=== PATIENT | female | born 1980 | race Caucasian/White ===

== ENCOUNTER 2017-08-02 11:33 | Emergency (ER) | payer OTHER ==
[2017-08-02 12:33] LABS: Absolute Lymphocytes (CBC) 1.4 K/uL (0.7-4.9); Absolute Monocytes 0.8 K/uL (0.1-1.3); Absolute Neutrophil 4.1 K/uL (1.8-8.0); Eosinophils % 3.5 % (0-4.4); Hematocrit 41.9 % (36.0-45.0); Lymphocytes % 20.9 % (15.3-44.8); MCH 28.9 pg (27.0-35.0); MCV 88.7 fL (80-100); MPV 8.9 fL (7.6-11.3); Monocytes % 12.6 % (3.3-12.3); RBC Red Blood Cell Count 4.73 M/uL (3.86-4.86)
[2017-08-02 12:37] LABS: Protime INR 1.02
[2017-08-02 12:46] LABS: Bicarbonate 24 mEq/L (21-31); Glucose Level 97 mg/dL (65-120); Potassium 3.8 mEq/L (3.6-5.0); Sodium Level 139 mEq/L (135-145)
[2017-08-02 12:51] LABS: ALT/SGPT 17 IU/L (10-60); AST/SGOT 19 IU/L (10-42); Albumin 4.2 g/dL (3.2-5.5); Alkaline Phosphatase 63 IU/L (42-121); BUN Blood Urea Nitrogen 14 mg/dL (6-20); Bilirubin Direct 0.1 mg/dL (0-0.2); Protein, Total 7.2 g/dL (6.0-8.3)
[2017-08-02 12:55] LABS: Alcohol Serum/Plasma < 10 mg/dl; Salicylates Level < 4.0 mg/dl (<30)
[2017-08-02 13:03] LABS: Urine Blood NEGATIVE (NEG); Urine Glucose NEGATIVE (NEG); Urine Protein 1+ (NEG); Urine Specific Gravity >1.030 (1.005-1.030); Urine pH 6.5 (5.0-7.0)
[2017-08-02 13:06] LABS: Barbiturates NEGATIVE; Benzodiazepines POSITIVE; Cocaine NEGATIVE; Opiates NEGATIVE; Phencyclidine NEGATIVE; THC Cannibis NEGATIVE
[2017-08-02 13:10] LABS: METHAMPHETAM POSITIVE
--- NOTE | 2017-08-02 13:36 | EKG ---
Test Date: 2017-08-02 Test Time: 12:07:04 Tube Machine Operator: HEAVEN MEASUREMENT RESULTS: Intervals: Rate: 77 WI: 122 QRSD: 84 QT: 396 QTc: 448 [place]: P: 49 WI: 122 QRS: 71 T: 49 INTERPRETIVE STATEMENTS: Normal sinus rhythm Normal ECG No previous ECG available for comparison Electronically Signed On 08-02-17 13:36:25 CDT by Barry Blackburn
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
== END 2017-08-02 17:45 | disposition home or self-care (01) ==
LOC: ER 11:33
DX: F43.21 Adjustment disorder with depressed mood (principal); E03.9 Hypothyroidism, unspecified; F20.9 Schizophrenia, unspecified; F31.9 Bipolar disorder, unspecified
CPT/HCPCS: 36415; 80048; 80076; 80307; 80320; 80329; 81003; 81025; 85025; 85610; 85730; 93005; 99285

== ENCOUNTER 2017-08-11 14:33 | Emergency (ER) | payer OTHER ==
--- NOTE | 2017-08-11 15:42 | RAD REPORT ---
EXAM DESCRIPTION: RAD - Wrist Right 3 View - 08/11/2017 3:37 pm CLINICAL HISTORY: Pain and swelling. COMPARISON: None. FINDINGS: No fracture or dislocation seen. No foreign body seen. Mild soft tissue swelling is seen along the dorsum of the wrist and forearm.
--- NOTE | 2017-08-11 15:42 | RAD REPORT ---
EXAM DESCRIPTION: RAD - Wrist Left 3 View - 08/11/2017 3:36 pm CLINICAL HISTORY: Pain and swelling. COMPARISON: None. FINDINGS: No fracture or dislocation seen. No foreign body or other soft tissue abnormality. IMPRESSION: Negative examination.
--- NOTE | 2017-08-11 16:05 | RAD REPORT ---
EXAM DESCRIPTION: CT - Head Brain Wo Cont - 08/11/2017 3:56 pm CLINICAL HISTORY: Headache COMPARISON: None. TECHNIQUE: Computed axial tomography of the head was obtained. IV contrast was not requested. All CT scans are performed using dose optimization technique as appropriate and may include automated exposure control or mA/KV adjustment according to patient size. FINDINGS: An intracranial bleed is not seen . The ventricles are normal in caliber. No extra-axial fluid collection is noted. Fluid within the sinuses/ mastoids is not seen. IMPRESSION: No acute intracranial abnormality is seen. If patient's symptoms persist MRI of the bra in would be recommended.
[2017-08-11 16:20] LABS: Bicarbonate 22 mEq/L (21-31); Glucose Level 90 mg/dL (65-120); Potassium 3.5 mEq/L (3.6-5.0); Sodium Level 137 mEq/L (135-145)
[2017-08-11 16:25] LABS: Absolute Lymphocytes (CBC) 1.6 K/uL (0.7-4.9); Absolute Monocytes 1.2 K/uL (0.1-1.3); Absolute Neutrophil 6.3 K/uL (1.8-8.0); Basophils % 0.9 % (0-1.3); Eosinophils % 0.9 % (0-4.4); Hematocrit 39.6 % (36.0-45.0); Lymphocytes % 17.6 % (15.3-44.8); MCH 29.2 pg (27.0-35.0); MCV 88.3 fL (80-100); MPV 8.9 fL (7.6-11.3); Monocytes % 12.8 % (3.3-12.3); RBC Red Blood Cell Count 4.48 M/uL (3.86-4.86)
[2017-08-11 16:26] LABS: ALT/SGPT 24 IU/L (10-60); AST/SGOT 24 IU/L (10-42); Albumin 4.1 g/dL (3.2-5.5); Alkaline Phosphatase 61 IU/L (42-121); BUN Blood Urea Nitrogen 14 mg/dL (6-20); Bilirubin Direct 0.1 mg/dL (0-0.2); Protime INR 0.97
[2017-08-11 16:28] LABS: Alcohol Serum/Plasma < 10 mg/dl; Salicylates Level < 4.0 mg/dl (<30)
[2017-08-11] MEDS ORDERED: ACETAMINOPHEN 500 MG TAB ONE (16:56)
[2017-08-11] MEDS ORDERED: NA CHLORIDE 0.9% 1,000 ML ONE (16:56)
--- NOTE | 2017-08-11 17:41 | EKG ---
Test Date: 2017-08-11 Test Time: 15:40:16 Mass Spectrometry Specialist: HEAVEN MEASUREMENT RESULTS: Intervals: Rate: 99 IN: 118 QRSD: 80 QT: 364 QTc: 467 [place]: P: 71 IN: 118 QRS: 83 T: 72 INTERPRETIVE STATEMENTS: Normal sinus rhythm Normal ECG Compared to ECG 08/02/2017 12:07:04 No significant changes Electronically Signed On 08-11-17 17:40:07 CDT by Barry Blackburn
--- NOTE | 2017-08-11 21:29 | ER ---
Nurse's Notes [facility] Name: Riddhi Kaiser Age: 37 yrs Sex: Female : 1980 Arrival Date: 08/11/2017 Time: 14:39 Bed 4 Private MD: Diagnosis: Delirium due to known physiological condition;Drug abuse counseling and surveillance of drug abuser;Contusion of left hand;Contusion of right hand Presentation: 08/11 14:30 Presenting complaint: EMS states: Pt found outside in our parking lot. Pt was spitting, sv flailing about and yelling. Pt has injuries to bilateral wrists, bilateral hand swelling. Pt has a splint to the right wrist. Friends that were with her stated she took a hit of Bala. 20G R FA. Ativan 2mg IM in right shoulder. Ketamine 140 mg IV given. BS -122 Temp 98.2. Pt reports smoking a hit of Bala and methamphetamine's last night. Transition of care: patient was not received from another setting of care. Onset of symptoms was August 11, 2017. Care prior to arrival: IV initiated. 20 GA, in the left forearm, Glucose check: 122. 14:30 Method Of Arrival: EMS: [facility] sv 14:30 Acuity: JOB 2 sv 14:31 Initial Sepsis Screen: Does the patient meet any 2 criteria? No. Patient's initial sv sepsis screen is negative. Does the patient have a suspected source of infection? No. Patient's initial sepsis screen is negative. Triage Assessment: 14:35 General: Appears uncomfortable, unkempt, Behavior is cooperative, agitated. Pain: sv Complains of pain in right hand and left hand Unable to use pain scale. FLACC scale score is 3 out of 10. EENT: No signs and/or symptoms were reported regarding the EENT system. Neuro: Level of Consciousness is obeys commands, confused, lethargic, Oriented to person, situation. Cardiovascular: Capillary refill < 3 seconds is brisk in bilateral fingers Patient's skin is warm and dry. Pulses are 3+ in right radial artery and left radial artery. Respiratory: Respiratory effort is even, unlabored, Respiratory pattern is regular, symmetrical. Derm: Skin is normal, Bruising that is on right hand and left hand dark red. Musculoskeletal: Range of motion: intact in all extremities, Swelling present in right hand and left hand. 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 - Social history:: Smoking status: unknown Patient uses street drugs, Methamphetamine (Meth) Bala. Screenin:54 Abuse screen: Denies threats or abuse. Denies injuries from another. Nutritional sv screening: No deficits noted. Tuberculosis screening: No symptoms or risk factors identified. Fall Risk No fall in past 12 months (0 pts). Secondary diagnosis (15 points) impaired mobility, IV access (20 points). Ambulatory Aid- None/Bed Rest/Nurse Assist (0 pts). Gait- Impaired (20 pts.). Mental Status- Overestimates/Forgets Limitations (15 pts.). Total Ly Fall Scale indicates High Risk Score (45 or more points). Fall prevention measures have been instituted. Side Rails Up X 2 Frequent Obs/Assessments Occuring As available patient and family educated on Fall Prevention Program and Strategies. Assessment: 15:00 Reassessment: No changes from previously documented assessment. Patient and/or family sv updated on plan of care and expected duration. Pain level reassessed. Pt stated "I'm going into another dimension. I'm going into multiple dimensions.". 15:25 Reassessment: Xray at bedside. sv 15:38 Reassessment: No changes from previously documented assessment. Patient and/or family sv updated on plan of care and expected duration. Pain level reassessed. 16:34 Reassessment: Patient appears in no apparent distress at this time. Pt appears to be sv resting with eyes closed at this time. Respirations even and unlabored with no difficulty noted. 18:30 Reassessment: Patient appears in no apparent distress at this time. No changes from sv previously documented assessment. Patient and/or family updated on plan of care and expected duration. Pain level reassessed. Patient is alert, oriented x 3, equal unlabored respirations, skin warm/dry/pink. 18:39 Reassessment: Called 3 numbers given by Riddhi for her boyfriend Donato to give her a sv ride home. Numbers are [phone], , . Left voicemail on 2 numbers. 19:21 Reassessment: No changes from previously documented assessment. Patient and/or family tl1 updated on plan of care and expected duration. Pain level reassessed. 20:30 Reassessment: Patient appears in no apparent distress at this time. Patient and/or ao family updated on plan of care and expected duration. Pain level reassessed. Patient continues to sleep with no SS of distress. 21:30 Reassessment: Patient appears in no apparent distress at this time. Patient and/or ao family updated on plan of care and expected duration. Pain level reassessed. Patient woke up and started to scream demanding food. 22:16 Reassessment: Pt was discharged alert, oriented and ambulatory with no disturbance in tl1 gait Patient states symptoms have improved. Vital Signs: 14:42 BP 135 / 102; Pulse 109; Resp 18; Temp 97.8; Pulse Ox 100% ; sv 15:26 BP 133 / 98; Pulse 96; Resp 20; Pulse Ox 100% ; sv 16:33 BP 118 / 89; Pulse 82; Resp 16; Pulse Ox 100% on R/A; sv 18:07 BP 132 / 89; Pulse 63; Resp 17; Pulse Ox 99% on R/A; jb1 19:21 BP 118 / 84; Pulse 81; Resp 18; Pulse Ox 100% on R/A; Pain 0/10; tl1 20:29 BP 120 / 85; Pulse 84; Resp 17; Pulse Ox 100% ; Pain 0/10; tl1 21:30 BP 141 / 92; Pulse 90; Resp 16; Pulse Ox 100% on R/A; Pain 0/10; ao ED Course: 14:30 Maintain EMS IV. Dressing intact. Good blood return noted. Site clean \\T\\ dry. Gauge \\T\\ sv site: 20G L AC. 14:39 Patient arrived in ED. iw 14:39 Denita Braun, RN is Primary Nurse. sv 14:42 Triage completed. sv 14:45 Patient has correct armband on for positive identification. Placed in gown. Bed in low sv position. Side rails up X2. ice guard inspector on. Pulse ox on. NIBP on. Door closed. Head of bed elevated. 14:53 Arm band placed on left ankle. sv 15:01 Awaiting ED provider evaluation. sv 15:32 Ruthie Andersen FNP-C is [facility]. snw 15:32 Spencer Gomez MD is Attending Physician. snw 15:36 Wrist Left (3 View) XRAY In Process Unspecified. EDMS 15:36 Wrist Right 3 View XRAY In Process Unspecified. EDMS 15:45 EKG done, by technical analyst. reviewed by Ruthie PATEL. at1 15:[address] via stretcher. sv 15:56 Patient moved back from CT. sv 15:56 CT Head Brain wo Cont In Process Unspecified. EDMS 16:34 Awaiting re-evaluation by ER provider. sv 19:08 Report given to Christian CARRINGTON. sv 19:22 Resting quietly. Appears to be sleeping. tl1 22:17 No provider procedures requiring assistance completed. IV discontinued, intact, tl1 bleeding controlled, No redness/swelling at site. Administered Medications: 17:00 Drug: NS 0.9% 1000 ml Route: IV; Rate: 1 bolus; Site: left forearm; sv 22:18 Follow up: IV Status: Completed infusion tl1 17:00 Drug: Tylenol 1000 mg Route: PO; sv 18:18 Follow up: Response: No adverse reaction sv Intake: 17:01 PO: 300ml (Water); Total: 300ml. sv Outcome: 21:29 Discharge ordered by . snw 22:16 Discharged to home ambulatory. tl1 22:16 Condition: stable 22:16 Instructed on discharge instructions, follow up and referral plans. 22:18 Patient left the ED. tl1 Signatures: Dispatcher [employer] EDMS Julián Grover Stephanie, RN RN sv Ruthie Andersen FNP-C [employer]-Cs[employer] Mery Burgess RN RN Airam abdullahi, jack frame tender EKG Tat1 Riana Prince RN RN tl1 Christian Benitez RN RN ao Corrections: (The following items were deleted from the chart) 14:53 14:42 Pulse 109bpm; Resp 18bpm; Pulse Ox 100%; Temp 97.8F; sv sv 14:59 14:30 Presenting complaint: EMS states: Pt found outside in our parking lot. Pt was sv spitting, flailing about and yelling. Pt has injuries to bilateral wrists, bilateral hand swelling. Pt has a splint to the right wrist. Friends that were with her stated she took a hit of Bala. 20G R FA. Ativan 2mg IM in right shoulder. Ketamine 140 mg IV given. BS -122 Temp 98.2. sv
--- NOTE | 2017-08-11 21:29 | EDPHYS ---
Physician Documentation [facility] Name: Riddhi Kaiser Age: 37 yrs Sex: Female : 1980 Arrival Date: 08/11/2017 Time: 14:39 Bed 4 Private MD: ED Physician Spencer Gomez HPI: 08/11 15:34 This 37 yrs old Female presents to ER via EMS with complaints of Wrist snw Injury, Psych Problem. 15:34 The patient or guardian reports decreased range of motion, pain, swelling. The snw complaints affect the left wrist diffusely, right wrist diffusely. Context: The problem was sustained outdoors, on a street or driveway. Onset: The symptoms/episode began/occurred acutely, last night, and became persistent. Associated signs and symptoms: Pertinent positives: numbness distally, tingling distally. Compartment Syndrome negative for. It is unknown whether or not the patient has had similar symptoms in the past. It is unknown whether or not the patient has recently seen a physician. 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 - Social history:: Smoking status: unknown Patient uses street drugs, Methamphetamine (Meth) Bala. ROS: 15:42 Constitutional: Negative for fever, chills, and weight loss, Eyes: Negative for injury, snw pain, redness, and discharge, ENT: Negative for injury, pain, and discharge, Neck: Negative for injury, pain, and swelling, Cardiovascular: Negative for chest pain, palpitations, and edema, Respiratory: Negative for shortness of breath, cough, wheezing, and pleuritic chest pain, Abdomen/GI: Negative for abdominal pain, nausea, vomiting, diarrhea, and constipation, Back: Negative for injury and pain, Skin: Negative for injury, rash, and discoloration. 15:42 MS/extremity: Positive for injury or acute deformity, decreased range of motion, ecchymosis, swelling, of the bilateral hands/wrist. Exam: 15:43 Constitutional: This is a well developed, well nourished patient who is talking about snw demons invading her person post smoking Bala. States the demons attacked her Head/Face: Normocephalic, atraumatic. Eyes: Pupils equal round and reactive to light, extra-ocular motions intact. Lids and lashes normal. Conjunctiva and sclera are non-icteric and not injected. Cornea within normal limits. Periorbital areas with no swelling, redness, or edema. ENT: Nares patent. No nasal discharge, no septal abnormalities noted. Tympanic membranes are normal and external auditory canals are clear. Oropharynx with no redness, swelling, or masses, exudates, or evidence of obstruction, uvula midline. Mucous membranes moist. Neck: Trachea midline, no thyromegaly or masses palpated, and no cervical lymphadenopathy. Supple, full range of motion without nuchal rigidity, or vertebral point tenderness. No Meningismus. Chest/axilla: Normal chest wall appearance and motion. Nontender with no deformity. No lesions are appreciated. Cardiovascular: Regular rate and rhythm with a normal S1 and S2. No gallops, murmurs, or rubs. Normal PMI, no JVD. No pulse deficits. Respiratory: Lungs have equal breath sounds bilaterally, clear to auscultation and percussion. No rales, rhonchi or wheezes noted. No increased work of breathing, no retractions or nasal flaring. Abdomen/GI: Soft, non-tender, with normal bowel sounds. No distension or tympany. No guarding or rebound. No evidence of tenderness throughout. Back: No spinal tenderness. No costovertebral tenderness. Full range of motion. Skin: Warm, dry with normal turgor. Normal color with no rashes, no lesions, and no evidence of cellulitis. 15:43 Musculoskeletal/extremity: Extremities: grossly normal except: noted in the left hand and right hand: contusion, decreased ROM, ecchymosis, pain, Circulation is intact in all extremities. Sensation intact. Vital Signs: 14:42 BP 135 / 102; Pulse 109; Resp 18; Temp 97.8; Pulse Ox 100% ; sv 15:26 BP 133 / 98; Pulse 96; Resp 20; Pulse Ox 100% ; sv 16:33 BP 118 / 89; Pulse 82; Resp 16; Pulse Ox 100% on R/A; sv 18:07 BP 132 / 89; Pulse 63; Resp 17; Pulse Ox 99% on R/A; jb1 19:21 BP 118 / 84; Pulse 81; Resp 18; Pulse Ox 100% on R/A; Pain 0/10; tl1 20:29 BP 120 / 85; Pulse 84; Resp 17; Pulse Ox 100% ; Pain 0/10; tl1 21:30 BP 141 / 92; Pulse 90; Resp 16; Pulse Ox 100% on R/A; Pain 0/10; ao MDM: 15:32 Patient medically screened. snw 17:43 Data reviewed: vital signs, nurses notes. Data interpreted: Pulse oximetry: on room air snw is 100 %. Interpretation: normal. Counseling: I had a detailed discussion with the patient and/or guardian regarding: the historical points, exam findings, and any diagnostic results supporting the discharge/admit diagnosis, the presence of at least one elevated blood pressure reading (>120/80) during this emergency department visit, lab results, radiology results. ED course: pt sleeping in no distress.. 08/11 15:46 Order name: Acetaminophen; Complete Time: 16:53 snw 08/11 15:46 Order name: Basic Metabolic Panel; Complete Time: 16:53 snw 08/11 15:46 Order name: CBC with Diff; Complete Time: 16:53 snw 08/11 15:46 Order name: ETOH Level; Complete Time: 16:53 snw 08/11 15:46 Order name: Hepatic Function; Complete Time: 16:53 snw 08/11 15:46 Order name: PT-INR; Complete Time: 16:53 snw 08/11 15:12 Order name: Wrist Left (3 View) XRAY; Complete Time: 15:45 sv 08/11 15:12 Order name: Wrist Right 3 View XRAY; Complete Time: 15:45 sv 08/11 15:42 Order name: CT Head Brain wo Cont; Complete Time: 16:53 snw 08/11 15:46 Order name: Ptt, Activated; Complete Time: 16:53 snw 08/11 15:46 Order name: Salicylate; Complete Time: 16:53 snw 08/11 15:46 Order name: EKG; Complete Time: 15:47 snw 08/11 15:46 Order name: EKG - Nurse/Tech; Complete Time: 15:46 snw 08/11 15:46 Order name: IV Saline Lock; Complete Time: 15:46 snw 08/11 15:46 Order name: Labs collected and sent; Complete Time: 15:46 snw Administered Medications: 17:00 Drug: NS 0.9% 1000 ml Route: IV; Rate: 1 bolus; Site: left forearm; sv 22:18 Follow up: IV Status: Completed infusion tl1 17:00 Drug: Tylenol 1000 mg Route: PO; sv 18:18 Follow up: Response: No adverse reaction sv Disposition: 08/11/17 21:29 Discharged to Home. Impression: Delirium due to known physiological condition, Drug abuse counseling and surveillance of drug abuser, Contusion of left hand, Contusion of right hand. - Condition is Stable. - Discharge Instructions: Alcohol and Drug Addiction, Finding Treatment, Stimulant Use Disorder-Amphetamines, Hand Contusion, Smoking Hazards, Heat Therapy. - Medication Reconciliation Form, Thank You Letter, Antibiotic Education, Prescription Opioid Use form. - Follow up: Private Physician; When: 1 - 2 days; Reason: Recheck today's complaints, Continuance of care, Re-evaluation by your physician. Follow up: Emergency Department; When: As needed; Reason: Worsening of condition. Addendum: 08/13/2017 10:57 Co-signature as Attending Physician, Spencer Gomez MD I agree with the assessment and w a plan of care. Signatures: Dispatcher [employer] Denita Brar RN RN Ruthie Andersen, HAZARDOUS MATERIAL TECHNICIAN-C HAZARDOUS MATERIAL TECHNICIAN-Csnw Riana Prince RN RN [facility] Spencer Gomez MD MD ak Corrections: (The following items were deleted from the chart) 08/11 22:18 21:29 08/11/2017 21:29 Discharged to Home. Impression: Delirium due to known tl1 physiological condition; Drug abuse counseling and surveillance of drug abuser; Contusion of left hand; Contusion of right hand. Condition is Stable. Forms are Medication Reconciliation Form, Thank You Letter, Antibiotic Education, Prescription Opioid Use. Follow up: Private Physician; When: 1 - 2 days; Reason: Recheck today's complaints, Continuance of care, Re-evaluation by your physician. Follow up: Emergency Department; When: As needed; Reason: Worsening of condition. snw
== END 2017-08-11 22:18 | disposition home or self-care (01) ==
LOC: ER 14:33
DX: S60.222A Contusion of left hand, initial encounter (principal); S60.221A Contusion of right hand, initial encounter; X58.XXXA Exposure to other specified factors, initial encounter; Y93.9 Activity, unspecified; Y92.9 Unspecified place or not applicable; Z71.51 Drug abuse counseling and surveillance of drug abuser
CPT/HCPCS: 36415; 70450; 80048; 80076; 80320; 80329; 85025; 85610; 85730; 93005; 96360; 96361; 99285; J7030

== ENCOUNTER 2018-03-21 07:41 | Emergency (ER) | payer OTHER ==
--- NOTE | 2018-03-21 08:24 | ER ---
Nurse's Notes [facility] Name: Riddhi Kaiser Age: 37 yrs Sex: Female : 1980 Arrival Date: 03/21/2018 Time: 07:43 Bed 17 Private MD: None, None Diagnosis: Hallucinations, unspecified;Schizophrenia, unspecified;Drug abuse counseling and surveillance Presentation: 03/21 07:55 Presenting complaint: Patient states: "I CALLED 911 AND SAID I WAS SUICIDAL CAUSE I bp KNEW THAT WOULD GET THEM TO GIVE ME A RIDE. I REALLY WANTED TO GO HOME, BUT THEY BROUGHT ME HERE.". Transition of care: patient was not received from another setting of care. Onset of symptoms is unknown. Risk Assessment: Do you want to hurt yourself or someone else? Patient reports no desire to harm self or others. Initial Sepsis Screen: Does the patient meet any 2 criteria? No. Patient's initial sepsis screen is negative. Does the patient have a suspected source of infection? No. Patient's initial sepsis screen is negative. Note PT AFFIRMS NON-COMPLIANCE WITH PSYCH MEDS, AND RECENT METH AND SVETA USE AND PSYCH ISSUES WELL RECENT DOMESTIC ISSUES. Care prior to arrival: None. 07:55 Method Of Arrival: Law Enforcement: Antonio VALADEZ bp 07:55 Acuity: JOB 2 bp Triage Assessment: 07:59 General: Appears in no apparent distress. comfortable, Behavior is cooperative, bp appropriate for age, anxious. Pain: Denies pain. Neuro: Level of Consciousness is awake, alert, obeys commands, Oriented to person, place, time, situation, Appropriate for age. 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 - Social history:: Smoking status: Patient uses tobacco products, unknown amount Patient uses street drugs, Methamphetamine (Meth) SVETA. - Ebola Screening: : Patient negative for fever greater than or equal to 101.5 degrees Fahrenheit, and additional compatible Ebola Virus Disease symptoms Patient denies exposure to infectious person Patient denies travel to an Ebola-affected area in the 21 days before illness onset No symptoms or risks identified at this time. Screenin:02 Abuse screen: Denies threats or abuse. Denies injuries from another. Nutritional bp screening: No deficits noted. Tuberculosis screening: No symptoms or risk factors identified. Fall Risk None identified. Assessment: 08:00 General: Appears in no apparent distress. comfortable, Behavior is cooperative, bp appropriate for age, anxious. Pain: Denies pain. Neuro: Level of Consciousness is awake, alert, obeys commands, Oriented to person, place, time, situation, Appropriate for age. Cardiovascular: No deficits noted. Respiratory: Airway is patent Respiratory effort is even, unlabored, Respiratory pattern is regular, symmetrical. GI: No signs and/or symptoms were reported involving the gastrointestinal system. : No signs and/or symptoms were reported regarding the genitourinary system. EENT: No deficits noted. Derm: No deficits noted. Musculoskeletal: Circulation, motion, and sensation intact. Range of motion: intact in all extremities. Vital Signs: 07:59 BP 134 / 93; Pulse 94; Resp 16; Temp 98.4; Pulse Ox 98% ; Weight 68.04 kg; Height 5 ft. bp 5 in. (165.10 cm); 08:35 BP 137 / 96; Pulse 90; Resp 18 S; Pulse Ox 98% on R/A; Pain 0/10; aa5 07:59 Body Mass Index 24.96 (68.04 kg, 165.10 cm) bp ED Course: 07:43 Patient arrived in ED. mr 07:43 None, None is Private Physician. mr 07:47 Kareem Mcmillan MD is Attending Physician. rn 07:57 Triage completed. bp 07:59 Arm band placed on. bp 08:02 Patient has correct armband on for positive identification. Bed in low position. Call bp light in reach. Side rails up X2. 08:16 Yang Parson, ZEB is Primary Nurse. bp 08:35 Patient did not have IV access during this emergency room visit. aa5 08:35 No provider procedures requiring assistance completed. aa5 Administered Medications: No medications were administered Outcome: 08:24 Discharge ordered by . rn 08:35 Discharged to Unknown aa5 08:35 Condition: good 08:35 Discharge instructions given to patient, Instructed on discharge instructions, follow up and referral plans. Demonstrated understanding of instructions, follow-up care. 12:02 Patient left the ED. bp Signatures: Ally Lara Roman, MD MD rn Calderon, Audri, RN RN aa5 Yang Parson RN RN bp
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
== END 2018-03-21 12:02 | disposition home or self-care (01) ==
LOC: ER 07:41
DX: F20.9 Schizophrenia, unspecified (principal); Z71.51 Drug abuse counseling and surveillance of drug abuser; F43.10 Post-traumatic stress disorder, unspecified
CPT/HCPCS: 99281

== ENCOUNTER 2018-04-23 14:11 | Emergency (ER) | payer OTHER ==
--- NOTE | 2018-04-23 15:42 | ER ---
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 Transition of care: patient was not received from another setting of care. Onset of symptoms was April 23, 2018. Risk Assessment: Do you want to hurt yourself or someone else? Patient reports no desire to harm self or others. Initial Sepsis Screen: Does the patient meet any 2 criteria? No. Patient's initial sepsis screen is negative. Does the patient have a suspected source of infection? No. Patient's initial sepsis screen is negative. Care prior to arrival: None. 14:37 Method Of Arrival: Ambulatory 14:37 Acuity: JOB 4 Triage Assessment: 14:40 General: Appears in no apparent distress. uncomfortable, Behavior is calm, cooperative, hj appropriate for age. Pain: Denies pain. 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 - Social history:: Smoking status: Patient/guardian denies using tobacco, Patient/guardian denies using alcohol. - Ebola Screening: : Patient negative for fever greater than or equal to 101.5 degrees Fahrenheit, and additional compatible Ebola Virus Disease symptoms Patient denies exposure to infectious person Patient denies travel to an Ebola-affected area in the 21 days before illness onset. Screenin:40 Abuse screen: Denies threats or abuse. Denies injuries from another. Nutritional hj screening: No deficits noted. Tuberculosis screening: No symptoms or risk factors identified. Fall Risk None identified. Assessment: 15:30 General: Appears in no apparent distress. Behavior is calm, cooperative. Pain: Denies hb pain. Neuro: Level of Consciousness is awake, alert, obeys commands, Oriented to person, place, time, situation. Cardiovascular: Capillary refill < 3 seconds Patient's skin is warm and dry. Respiratory: Airway is patent Respiratory effort is even, unlabored, Respiratory pattern is regular, symmetrical. GI: No signs and/or symptoms were reported involving the gastrointestinal system. : No signs and/or symptoms were reported regarding the genitourinary system. EENT: No signs and/or symptoms were reported regarding the EENT system. Derm: Rash noted that is papular, on left hand and right hand and abdomen. Musculoskeletal: No signs and/or symptoms reported regarding the musculoskeletal system. 16:15 Reassessment: Patient appears in no apparent distress at this time. Patient and/or hb family updated on plan of care and expected duration. Pain level reassessed. Patient is alert, oriented x 3, equal unlabored respirations, skin warm/dry/pink. Vital Signs: 14:41 BP 133 / 91; Pulse 80; Resp 18; Temp 97.4(TE); Pulse Ox 100% on R/A; Weight 68.04 kg; hj Height 0 ft. 1 in. (2.54 cm); 14:41 Body Mass Index 41580.00 (68.04 kg, 2.54 cm) ED Course: 14:14 Patient arrived in ED. mr 14:15 None, None is Private Physician. mr 14:39 Triage completed. hj 14:40 Arm band placed on right wrist. hj 14:40 Patient has correct armband on for positive identification. Placed in gown. Bed in low hj position. Call light in reach. Side rails up X 1. 15:03 Nova Soria FNP-C [facility]. kb 15:03 Wayne Morgan MD is Attending Physician. kb 15:30 No provider procedures requiring assistance completed. Patient did not have IV access hb during this emergency room visit. 16:23 Tori Sampson, RN is Primary Nurse. hb Administered Medications: No medications were administered Outcome: 15:41 Discharge ordered by . kb 16:29 Patient left the ED. hb 16:33 Discharged to home ambulatory. hb 16:33 Condition: stable 16:33 Discharge instructions given to patient, Instructed on discharge instructions, follow up and referral plans. medication usage, Demonstrated understanding of instructions, follow-up care, medications, Prescriptions given X 2. Signatures: Nova Soria, AMANDA COUNSELING DEPARTMENT CHAIR-Jarred Ally Lara JorgeMariano arshad RN RN Tori Naylor RN RN Corrections: (The following items were deleted from the chart) 14:43 14:41 Pulse 80bpm; Resp 18bpm; Pulse Ox 100% RA; Temp 97.4F Temporal; 68.04 kg; Height hj 0 ft. 1 in.; BMI: 4252; hj 14:43 14:41 BP 137 / 98; Pulse 80bpm; Resp 18bpm; Pulse Ox 100% RA; Temp 97.4F Temporal; hj 68.04 kg; Height 0 ft. 1 in.; BMI: 4252; hj
--- NOTE | 2018-04-23 15:42 | EDPHYS ---
Physician Documentation [facility] Name: Riddhi Kaiser Age: 37 yrs Sex: Female : 1980 Arrival Date: 04/23/2018 Time: 14:14 Bed 19 Private MD: None, None ED Physician Wayne Morgan HPI: 04/23 16:07 This 37 yrs old Female presents to ER via Ambulatory with complaints of kb Personal. 16:07 The patient's rash thought to be caused by insect bites. The rash is located on the kb left hand and right hand and right lower quadrant. The rash can be described as erythematous. Onset: The symptoms/episode began/occurred last week. Associated signs and symptoms: Pertinent positives: itching. Severity of symptoms: At their worst the symptoms were mild moderate in the emergency department the symptoms are unchanged. The patient has not experienced similar symptoms in the past. The patient has not recently seen a physician. Pt reports there is something black that comes out of her skin on her hands and on her RLQ. States it looks like mold. Has been trying to get rid of it at home with 409, bleach and other chemicals, but it hasn't worked. Now she has sores from trying to pick the black stuff out. . 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 - Social history:: Smoking status: Patient/guardian denies using tobacco, Patient/guardian denies using alcohol. - Ebola Screening: : Patient negative for fever greater than or equal to 101.5 degrees Fahrenheit, and additional compatible Ebola Virus Disease symptoms Patient denies exposure to infectious person Patient denies travel to an Ebola-affected area in the 21 days before illness onset. ROS: 16:06 Constitutional: Negative for fever, chills, and weight loss, Cardiovascular: Negative kb for chest pain, palpitations, and edema, Respiratory: Negative for shortness of breath, cough, wheezing, and pleuritic chest pain, Abdomen/GI: Negative for abdominal pain, nausea, vomiting, diarrhea, and constipation, MS/Extremity: Negative for injury and deformity, Neuro: Negative for headache, weakness, numbness, tingling, and seizure. 16:06 Skin: Positive for rash, of the left hand and right hand and right lower quadrant. Exam: 15:55 Constitutional: This is a well developed, well nourished patient who is awake, alert, kb and in no acute distress. Head/Face: Normocephalic, atraumatic. ENT: Nares patent. No nasal discharge, no septal abnormalities noted. Tympanic membranes are normal and external auditory canals are clear. Oropharynx with no redness, swelling, or masses, exudates, or evidence of obstruction, uvula midline. Mucous membranes moist. Neck: Trachea midline, no thyromegaly or masses palpated, and no cervical lymphadenopathy. Supple, full range of motion without nuchal rigidity, or vertebral point tenderness. No Meningismus. Chest/axilla: Normal chest wall appearance and motion. Nontender with no deformity. No lesions are appreciated. Cardiovascular: Regular rate and rhythm with a normal S1 and S2. No gallops, murmurs, or rubs. Normal PMI, no JVD. No pulse deficits. Respiratory: Lungs have equal breath sounds bilaterally, clear to auscultation and percussion. No rales, rhonchi or wheezes noted. No increased work of breathing, no retractions or nasal flaring. Abdomen/GI: Soft, non-tender, with normal bowel sounds. No distension or tympany. No guarding or rebound. No evidence of tenderness throughout. MS/ Extremity: Pulses equal, no cyanosis. Neurovascular intact. Full, normal range of motion. Neuro: Awake and alert, GCS 15, oriented to person, place, time, and situation. Cranial nerves II-XII grossly intact. Motor strength 5/5 in all extremities. Sensory grossly intact. Cerebellar exam normal. Normal gait. 15:55 Skin: lesion(s), noted, and can be described as erythematous, located on the right lower quadrant, right hand and left hand, pt has been picking at skin and causing wounds that are red and warm. Vital Signs: 14:41 BP 133 / 91; Pulse 80; Resp 18; Temp 97.4(TE); Pulse Ox 100% on R/A; Weight 68.04 kg; hj Height 0 ft. 1 in. (2.54 cm); 14:41 Body Mass Index 90067.00 (68.04 kg, 2.54 cm) MDM: 15:04 Patient medically screened. kb 15:49 Data reviewed: vital signs, nurses notes. Data interpreted: Pulse oximetry: on room air kb is 100 %. Interpretation: normal. Counseling: I had a detailed discussion with the patient and/or guardian regarding: the historical points, exam findings, and any diagnostic results supporting the discharge/admit diagnosis, the need for outpatient follow up, a family practitioner, to return to the emergency department if symptoms worsen or persist or if there are any questions or concerns that arise at home. Administered Medications: No medications were administered Disposition: 04/24 06:46 Co-signature as Attending Physician, Wayne Morgan MD I agree with the assessment and felix plan of care. Disposition: 04/23/18 15:41 Discharged to Home. Impression: Local infection of the skin and subcutaneous tissue, unspecified. - Condition is Stable. - Discharge Instructions: Wound Infection, [id number]. - Prescriptions for Flagyl 500 mg Oral Tablet - take 1 tablet by ORAL route every 12 hours for 7 days; 14 tablet. Bactrim DS 800- 160 mg Oral Tablet - take 1 tablet by ORAL route every 12 hours for 10 days; 20 tablet. - Medication Reconciliation Form, Thank You Letter, Antibiotic Education, Prescription Opioid Use form. - Follow up: Emergency Department; When: As needed; Reason: Worsening of condition. Follow up: Private Physician; When: 2 - 3 days; Reason: Recheck today's complaints, Continuance of care, Re-evaluation by your physician. Signatures: Nova Soria, FABRICATOR INDUSTRIAL FURNACE-C FABRICATOR INDUSTRIAL FURNACE-Wayne Aggarwal MD MD cha Joaquin, Henry, ZEB RN Tori Naylor RN RN hb Corrections: (The following items were deleted from the chart) 04/23 16:29 15:41 04/23/2018 15:41 Discharged to Home. Impression: Local infection of the skin and hb subcutaneous tissue, unspecified. Condition is Stable. Forms are Medication Reconciliation Form, Thank You Letter, Antibiotic Education, Prescription Opioid Use. Follow up: Emergency Department; When: As needed; Reason: Worsening of condition. Follow up: Private Physician; When: 2 - 3 days; Reason: Recheck today's complaints, Continuance of care, Re-evaluation by your physician. kb
== END 2018-04-23 16:29 | disposition home or self-care (01) ==
LOC: ER 14:11
DX: L08.9 Local infection of the skin and subcutaneous tissue, unspecified (principal); E03.9 Hypothyroidism, unspecified; F31.9 Bipolar disorder, unspecified; F20.9 Schizophrenia, unspecified
CPT/HCPCS: 99282

== ENCOUNTER 2018-05-03 10:27 | Emergency (ER) | payer OTHER ==
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
[2018-05-03] MEDS ORDERED: KETOROLAC 30 MG/ML INJ ONE (13:07)
[2018-05-03] MEDS ORDERED: ONDANSETRON 4 MG (ODT) TAB ONE (13:07)
[2018-05-03 13:35] LABS: Urine Blood TRACE (NEG); Urine Glucose NEGATIVE (NEG); Urine Protein NEGATIVE (NEG); Urine Specific Gravity 1.015 (1.005-1.030); Urine pH 7.5 (5.0-7.0)
== END 2018-05-03 13:08 | disposition home or self-care (01) ==
LOC: ER 10:27
DX: S06.0X0A Concussion without loss of consciousness, initial encounter (principal); S00.83XA Contusion of other part of head, initial encounter; S00.33XA Contusion of nose, initial encounter; Y04.2XXA Assault by strike against or bumped into by another person, initial encounter; Y93.9 Activity, unspecified; Y92.89 Other specified places as the place of occurrence of the external cause; F17.210 Nicotine dependence, cigarettes, uncomplicated; F31.9 Bipolar disorder, unspecified; F20.9 Schizophrenia, unspecified; F43.10 Post-traumatic stress disorder, unspecified
CPT/HCPCS: 70450; 70486; 72125; 76377; 81003; 81025; 96372; 99284

== ENCOUNTER 2018-06-25 00:15 | Emergency (ER) | payer OTHER ==
--- NOTE | 2018-06-25 01:02 | ER ---
Nurse's Notes [facility] Name: Riddhi Kaiser Age: 38 yrs Sex: Female : 1980 Arrival Date: 06/25/2018 Time: 00:15 Bed 18 Private MD: Diagnosis: Presentation: 06/25 00:16 Presenting complaint: EMS states: She thinks she had a miscarriage four days ago and ed1 today is having lower abdominal pain and heavy bleeding. Transition of care: patient was not received from another setting of care. Onset of symptoms was June 20, 2018. Risk Assessment: Do you want to hurt yourself or someone else? Patient reports no desire to harm self or others. Initial Sepsis Screen: Does the patient meet any 2 criteria? No. Patient's initial sepsis screen is negative. Does the patient have a suspected source of infection? No. Patient's initial sepsis screen is negative. Care prior to arrival: None. 00:16 Method Of Arrival: EMS: [facility] ed1 00:16 Acuity: JOB 3 ed1 Triage Assessment: 00:19 General: Appears in no apparent distress. Behavior is anxious. Pain: Complains of pain ed1 in suprapubic area Pain does not radiate. Pain currently is 6 out of 10 on a pain scale. Quality of pain is described as crampy, Pain began 2-3 days ago. Is intermittent. EENT: No signs and/or symptoms were reported regarding the EENT system. Neuro: Level of Consciousness is awake, alert, obeys commands, Oriented to person, place, time, situation. Cardiovascular: Denies chest pain, Heart tones S1 S2 present. Respiratory: Airway is patent Respiratory effort is even, unlabored, Respiratory pattern is regular, symmetrical, Breath sounds are clear bilaterally. GI: Abdomen is non-distended, Bowel sounds present X 4 quads. Abd is soft and non tender X 4 quads. Reports lower abdominal pain, cramping, Patient currently denies diarrhea, nausea, vomiting. : Reports vaginal bleeding that is bright red, with clots, moderate flow. Derm: Skin is intact, is healthy with good turgor, Skin is dry, Skin is normal, Skin temperature is warm. Musculoskeletal: Circulation, motion, and sensation intact. Range of motion: intact in all extremities. 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 Patient has never been vaccinated. - Social history:: Smoking status: Patient uses tobacco products, smokes one pack cigarettes per day. Patient uses alcohol, drank 2 beers today. - Ebola Screening: : Patient negative for fever greater than or equal to 101.5 degrees Fahrenheit, and additional compatible Ebola Virus Disease symptoms Patient denies exposure to infectious person Patient denies travel to an Ebola-affected area in the 21 days before illness onset No symptoms or risks identified at this time. Screenin:25 Abuse screen: Denies threats or abuse. Denies injuries from another. Nutritional ed1 screening: No deficits noted. Tuberculosis screening: No symptoms or risk factors identified. Fall Risk None identified. Assessment: 00:25 General: See triage assessment. ed1 00:59 Reassessment: Pt ambulatory to nurses station and states "I am just going to go. I will ed1 be fine. There isn't anything yall can do for me anyway.". Vital Signs: 00:19 BP 130 / 89; Pulse 92; Resp 20; Temp 98.4(O); Pulse Ox 100% on R/A; Weight 70.76 kg ed1 (R); Height 5 ft. 5 in. (165.10 cm); Pain 7/10; 00:19 Body Mass Index 25.96 (70.76 kg, 165.10 cm) ed1 ED Course: 00:15 Patient arrived in ED. ed1 00:18 Triage completed. ed1 00:19 Arm band placed on. ed1 00:25 Awaiting ED provider evaluation. ed1 00:25 Patient has correct armband on for positive identification. Placed in gown. Bed in low ed1 position. Call light in reach. Side rails up X 1. Pulse ox on. NIBP on. Warm blanket given. 00:46 Darshan Chatterjee MD is Attending Physician. 00:46 Kristin Morgan RN is Primary Nurse. ed1 00:59 No provider procedures requiring assistance completed. Patient did not have IV access ed1 during this emergency room visit. Administered Medications: No medications were administered Outcome: 00:59 Eloped from patient exam room, before seeing physician Time discovered patient gone: ed1 June 25, 2018 at 01:00 00:59 Condition: good 00:59 Discharge instructions given to patient, Instructed on Need to see provider Demonstrated understanding of Pt wants to leave 01:01 Patient left the ED. ed1 Signatures: Kristin Morgan RN RN ed1 Darshan Chatterjee MD MD
== END 2018-06-25 01:01 | disposition left against medical advice (07) ==
LOC: ER 00:15
DX: Z53.21 Procedure and treatment not carried out due to patient leaving prior to being seen by health care provider (principal)
CPT/HCPCS: 99283

== ENCOUNTER 2022-05-08 02:18 | Emergency (ER) | payer SELFPAY ==
--- OUTSIDE RECORDS SUMMARY | 2022-05-08 02:21 | XMS REPORT | Continuity of Care Document ---
:1980 Author Organization [facility] t Address [address] [place] [address] Care Team Providers Name Role Phone Unavailable Unavailable Unavailable Problems This patient has no known problems. Allergies, Adverse Reactions, Alerts Allergy Allergy Status Severity Reaction(s) Onset Inactive Treating Comm ents Source Name Type Date Date Clinician NO KNOWN Drug Active [facility] ALLERGIE Class [facility] of [facility] Medications This patient has no known medications. Procedures This patient has no known procedures. Results This patient has no known results.
[2022-05-08] MEDS ORDERED: NA CHLORIDE 0.9% 1,000 ML ONE (02:38)
[2022-05-08 02:55] LABS: Absolute Lymphocytes (CBC) 3.4 K/uL (0.7-4.9); Hematocrit 39.1 % (36.0-45.0); MCV 90.6 fL (80-100); MPV 8.5 fL (7.6-11.3); RBC Red Blood Cell Count 4.32 M/uL (3.86-4.86)
[2022-05-08 03:15] LABS: BUN Blood Urea Nitrogen 15 mg/dL (7-18); Bicarbonate 24 mmol/L (21-32); Glomerular Filtration Rate 111 ml/min (=/>90); Glucose Level 121 mg/dL (74-106); Magnesium 2.1 mg/dL (1.6-2.4); Sodium Level 138 mmol/L (136-145); Troponin High Sensitivity < 3.0 pg/mL (<58.9)
[2022-05-08 03:22] LABS: Urine Blood Negative (Negative); Urine Glucose Negative (Negative); Urine Protein Negative (Negative)
[2022-05-08] MEDS ORDERED: POTASSIUM CL SA 10 MEQ TAB PO ONE (03:28)
--- NOTE | 2022-05-08 03:52 | EDPHYS ---
Physician Documentation [facility] Name: Riddhi Kaiser Age: 41 yrs Sex: Female : 1980 Arrival Date: 05/08/2022 Time: 02:19 Bed 14 Private MD: ED Physician Romeo Warren HPI: 05/08 04:42 This 41 yrs old Female presents to ER via Ambulatory with complaints of High Blood ms3 Pressure, Breathing Difficulty. 04:45 41-year-old female with past medical history of bipolar, hypothyroidism, PTSD, ms3 schizophrenia presents for palpitations that occurred while lying in bed. Patient states she is currently 5 weeks and has experienced headaches when waking up in the morning. Patient states she takes Excedrin approximately 2 times per day. Patient states tonight she developed palpitations and began shaking causing her to come to the emergency department. Patient denies pain at this time. Patient denies alleviating or inciting factors. Patient denies nausea, vomiting, chest pain, shortness of breath.. Historical: - Allergies: 02:36 No Known Allergies; ke1 - PMHx: 02:36 Bipolar disorder; Hypothyroidism; PTSD; Schizophrenia; ke1 - Immunization history:: Adult Immunizations Client reports receiving the 2nd dose of the Covid vaccine. - Social history:: Smoking status: Patient reports the use of cigarette tobacco products, smokes one-half pack cigarettes per day. ROS: 04:45 Constitutional: Negative for fever, and chills. Neck: Negative for injury, pain, and ms3 swelling. 04:45 Respiratory: Negative for shortness of breath, cough, wheezing, and pleuritic chest pain, Abdomen/GI: Negative for abdominal pain, nausea, vomiting, diarrhea, and constipation, Skin: Negative for injury, rash, and discoloration. 04:45 Cardiovascular: Positive for palpitations. 04:45 All other systems are negative. Exam: 02:52 ECG was reviewed by the Attending Physician. ms3 03:00 Constitutional: This is a well developed, well nourished patient who is awake, alert, ms3 and in no acute distress. Head/Face: Normocephalic, atraumatic. Neck: Trachea midline, no cervical lymphadenopathy. Supple, full range of motion without nuchal rigidity, or vertebral point tenderness. No Meningismus. Chest/axilla: Normal chest wall appearance and motion. Nontender with no deformity. Respiratory: Lungs have equal breath sounds bilaterally, clear to auscultation and percussion. No rales, rhonchi or wheezes noted. No increased work of breathing, no retractions or nasal flaring. Abdomen/GI: Soft, non-tender, with normal bowel sounds. No distension or tympany. No guarding or rebound. No evidence of tenderness throughout. Skin: Warm, dry with normal turgor. Normal color with no rashes, no lesions, and no evidence of cellulitis. MS/ Extremity: Pulses equal, no cyanosis. Neurovascular intact. Full, normal range of motion. 03:00 Cardiovascular: Rate: tachycardic, Rhythm: regular, Pulses: no pulse deficits are ms3 appreciated, Heart sounds: normal, normal S1and S2. Vital Signs: 02:33 BP 158 / 82; Pulse 113; Resp 19; Temp 98.2; Pulse Ox 100% on R/A; Weight 69.4 kg; ke1 Height 5 ft. 5 in. (165.10 cm); Pain 0/10; 03:28 BP 126 / 96; Pulse 79; Resp 19; Temp 98.2; Pulse Ox 100% on R/A; Pain 0/10; ke1 02:33 Body Mass Index 25.46 (69.40 kg, 165.10 cm) ke1 MDM: 02:31 Patient medically screened. ms3 03:00 Differential diagnosis: PE vs ACS vs Electrolyte abnormality vs anxiety. ms3 03:51 Data reviewed: vital signs, nurses notes, lab test result(s), cardiac enzymes, hS ms3 Troponin, CBC, EKG, radiologic studies, plain films, and as a result, I will discharge patient. Consideration of Admission/Observation Escalation of care including admission/observation considered. Patient with negative D-dimer, negative troponin. Symptoms have resolved at this time. No emergent condition necessitating hospital admission found at this time.. I considered the following discharge prescriptions or medication management in the emergency department Medications were administered in the Emergency Department. See MAR. Independent interpretation of the following test(s) in the Emergency Department EKG: See my EKG interpretation above cardiac monitor technician: rate is 78 beats/min, Rhythm is normal sinus rhythm, regular, with no ectopy, Interpretation: normal rate, normal rhythm. Counseling: I had a detailed discussion with the patient and/or guardian regarding: the historical points, exam findings, and any diagnostic results supporting the discharge/admit diagnosis, lab results, radiology results, the need for outpatient follow up, to return to the emergency department if symptoms worsen or persist or if there are any questions or concerns that arise at home, smoking cessation. Response to treatment: the patient's symptoms have markedly improved after treatment. Special discussion: I have referred the patient to see his PCP for further evaluation of high blood pressure. I discussed with the patient/guardian in detail that at this point there is no indication for admission to the hospital. It is understood, however, that if the symptoms persist or worsen the patient needs to return immediately for re-evaluation. 04:45 ED course: Discussed discontinuation of tobacco, vaping, marijuana during ms3 with the patient. Patient to follow-up with Dr. Larsen in 2 to 3 days. Patient understands and agrees with plan. All questions were answered. Return precautions discussed include shortness of breath, chest pain, inability to tolerate p.o., worsening symptoms, or any other concerns. On reevaluation patient is alert and oriented x4, no apparent distress, nontoxic, ambulatory in emergency department, speaking full sentences.. 05/08 02:32 Order name: Basic Metabolic Panel; Complete Time: 03:16 3 05/08 02:32 Order name: CBC with Diff; Complete Time: 03:16 05/08 02:32 Order name: D-Dimer; Complete Time: 03:16 05/08 02:32 Order name: Magnesium; Complete Time: 03:16 3 05/08 02:32 Order name: Troponin HS; Complete Time: 03:16 05/08 03:23 Order name: Urine Dipstick-Ancillary; Complete Time: 03:36 EDMS 05/08 02:32 Order name: XRAY Chest (1 view) 05/08 02:32 Order name: EKG; Complete Time: 02:33 ms3 05/08 02:32 Order name: Cardiac monitoring; Complete Time: 02:57 3 05/08 02:32 Order name: EKG - Nurse/Tech; Complete Time: 02:57 3 05/08 02:32 Order name: IV Saline Lock; Complete Time: 02:57 05/08 03:24 Order name: Urine --Ancillary (enter results); Complete Time: 03:36 wm 05/08 02:32 Order name: Labs collected and sent; Complete Time: 02:57 ms3 05/08 02:32 Order name: O2 Per Protocol; Complete Time: 02:57 ms3 05/08 02:32 Order name: O2 Sat Monitoring; Complete Time: 02:58 ms3 05/08 03:16 Order name: Urine Test (obtain specimen); Complete Time: 03:21 ms3 EC:52 Rate is 106 beats/min. Rhythm is regular. QRS [place] is Normal. MA interval is normal. ms3 QRS interval is normal. QT interval is normal. Clinical impression: Sinus tachycardia. Interpreted by me. Reviewed by me. Administered Medications: 02:57 Drug: NS 0.9% 1000 ml Route: IV; Rate: 1000 ml; Site: right antecubital; ke1 03:28 Drug: Potassium Chloride 40 mEq Route: PO; ke1 Disposition Summary: 05/08/22 03:51 Discharge Ordered Location: Home ms3 Condition: Stable ms3 Diagnosis - Less than 8 weeks gestation of ms3 - Palpitations ms3 - Elevated blood-pressure reading, without diagnosis of hypertension ms3 Followup: ms3 - With: Marlo Larsen MD - When: 2 - 3 days - Reason: Recheck today's complaints Discharge Instructions: - Discharge Summary Sheet ms3 - Palpitations ms3 - Care ms3 - First Trimester of , Palk-lo-Nzpd ms3 - and the Partner's Role ms3 - How A Baby Grows During ms3 Forms: - Medication Reconciliation Form ms3 - Thank You Letter ms3 - Antibiotic Education ms3 - Prescription Opioid Use ms3 Signatures: Dispatcher [employer] EDMS Romeo Warren DO DO ms3 Barbara Sutton RN RN ke1 Corrections: (The following items were deleted from the chart) 04:47 04:45 Constitutional: This is a well developed, well nourished patient who is awake, ms3 alert, and in no acute distress. Head/Face: Normocephalic, atraumatic. Neck: Trachea midline, no cervical lymphadenopathy. Supple, full range of motion without nuchal rigidity, or vertebral point tenderness. No Meningismus. Chest/axilla: Normal chest wall appearance and motion. Nontender with no deformity. Cardiovascular: Regular rate and rhythm with a normal S1 and S2. No gallops, murmurs, or rubs. Normal PMI, no JVD. No pulse deficits. Respiratory: Lungs have equal breath sounds bilaterally, clear to auscultation and percussion. No rales, rhonchi or wheezes noted. No increased work of breathing, no retractions or nasal flaring. Abdomen/GI: Soft, non-tender, with normal bowel sounds. No distension or tympany. No guarding or rebound. No evidence of tenderness throughout. Skin: Warm, dry with normal turgor. Normal color with no rashes, no lesions, and no evidence of cellulitis. MS/ Extremity: Pulses equal, no cyanosis. Neurovascular intact. Full, normal range of motion. ms3 04:48 04:45 Constitutional: This is a well developed, well nourished patient who is awake, ms3 alert, and in no acute distress. Head/Face: Normocephalic, atraumatic. Neck: Trachea midline, no cervical lymphadenopathy. Supple, full range of motion without nuchal rigidity, or vertebral point tenderness. No Meningismus. Chest/axilla: Normal chest wall appearance and motion. Nontender with no deformity. Cardiovascular: Regular rate and rhythm with a normal S1 and S2. No gallops, murmurs, or rubs. Normal PMI, no JVD. No pulse deficits. Respiratory: Lungs have equal breath sounds bilaterally, clear to auscultation and percussion. No rales, rhonchi or wheezes noted. No increased work of breathing, no retractions or nasal flaring. Abdomen/GI: Soft, non-tender, with normal bowel sounds. No distension or tympany. No guarding or rebound. No evidence of tenderness throughout. Skin: Warm, dry with normal turgor. Normal color with no rashes, no lesions, and no evidence of cellulitis. MS/ Extremity: Pulses equal, no cyanosis. Neurovascular intact. Full, normal range of motion. ms3
--- NOTE | 2022-05-08 03:52 | ER ---
Nurse's Notes [facility] Name: Riddhi Kaiser Age: 41 yrs Sex: Female : 1980 Arrival Date: 05/08/2022 Time: 02:19 Bed 14 Private MD: Diagnosis: Less than 8 weeks gestation of ;Palpitations;Elevated blood-pressure reading, without diagnosis of hypertension Presentation: 05/08 02:33 Chief complaint: Patient states: 5 weeks , took Excedrin around 1 am, not able ke1 to sleep, shaking uncontrollably with flutter in the chest. Coronavirus screen: Vaccine status: Patient reports receiving the 2nd dose of the covid vaccine. Ebola Screen: No symptoms or risks identified at this time. Initial Sepsis Screen: Does the patient meet any 2 criteria? HR > 90 bpm. No. Patient's initial sepsis screen is negative. Does the patient have a suspected source of infection? No. Patient's initial sepsis screen is negative. Risk Assessment: Do you want to hurt yourself or someone else? Patient reports no desire to harm self or others. Onset of symptoms was May 08, 2022 at 01:30. 02:33 Method Of Arrival: Ambulatory ke1 02:33 Acuity: JOB 3 ke1 Triage Assessment: 02:36 General: Appears uncomfortable, Behavior is anxious. Pain: Denies pain. Neuro: [place] ke1 Agitation-Sedation Scale (RASS): +1 Restless Level of Consciousness is awake, alert, Oriented to person, place, time, situation. Cardiovascular: Capillary refill < 3 seconds Rhythm is sinus tachycardia. Respiratory: Reports shortness of breath on exertion Airway is patent Trachea midline Respiratory effort is even, unlabored, Respiratory pattern is regular, symmetrical, Onset: The symptoms/episode began/occurred today, the patient has mild shortness of breath. GI: Abdomen is round non-distended. Historical: - Allergies: 02:36 No Known Allergies; ke1 - PMHx: 02:36 Bipolar disorder; Hypothyroidism; PTSD; Schizophrenia; ke1 - Immunization history:: Adult Immunizations Client reports receiving the 2nd dose of the Covid vaccine. - Social history:: Smoking status: Patient reports the use of cigarette tobacco products, smokes one-half pack cigarettes per day. Screenin:38 [facility] ED Fall Risk Assessment (Adult) History of falling in the last 3 months, ke1 including since admission No falls in past 3 months (0 pts) Confusion or Disorientation No (0 pts) Intoxicated or Sedated No (0 pts) Impaired Gait No (0 pts) Mobility Assist Device Used No (0 pt) Altered Elimination No (0 pt) Score/Fall Risk Level 0 - 2 = Low Risk. Abuse screen: Denies threats or abuse. Nutritional screening: No deficits noted. Tuberculosis screening: No symptoms or risk factors identified. Assessment: 02:38 Cardiovascular: Heart tones S1 S2. Respiratory: Respiratory effort is even, unlabored, ke1 Breath sounds are clear bilaterally. Vital Signs: 02:33 BP 158 / 82; Pulse 113; Resp 19; Temp 98.2; Pulse Ox 100% on R/A; Weight 69.4 kg; ke1 Height 5 ft. 5 in. (165.10 cm); Pain 0/10; 03:28 BP 126 / 96; Pulse 79; Resp 19; Temp 98.2; Pulse Ox 100% on R/A; Pain 0/10; ke1 02:33 Body Mass Index 25.46 (69.40 kg, 165.10 cm) ke1 ED Course: 02:19 Patient arrived in ED. ja2 02:21 Romeo Warren DO is Attending Physician. ms3 02:25 Barbara Sutton, ZEB is Primary Nurse. ke1 02:35 Triage completed. ke1 02:38 Arm band placed on right wrist. ke1 02:38 Bed in low position. Call light in reach. ke1 02:40 Inserted saline lock: 20 gauge in right antecubital area, using aseptic technique. ha1 Blood collected. 03:18 XRAY Chest (1 view) In Process Unspecified. EDMS 03:50 Marlo Larsen MD is Referral Physician. ms3 03:50 No provider procedures requiring assistance completed. ke1 04:05 IV discontinued. ke1 Administered Medications: 02:57 Drug: NS 0.9% 1000 ml Route: IV; Rate: 1000 ml; Site: right antecubital; ke1 03:28 Drug: Potassium Chloride 40 mEq Route: PO; ke1 Medication: 04:05 VIS not applicable for this client. ke1 Outcome: 03:51 Discharge ordered by . ms3 04:05 Discharged to home ambulatory. ke1 04:05 Condition: good 04:05 Condition: good 04:05 Discharge instructions given to patient. 04:05 Patient left the ED. ke1 Signatures: Dispatcher [employer] EDMS Romeo Warren DO DO ms3 Mone Hickman2 Barbara Sutton RN RN ke1 Tena Feliz RN RN ha1
[2022-05-08 04:37] VITALS: TEMP 98.2; O2SAT 100
[2022-05-08 04:47] VITALS: BP 126/96
--- NOTE | 2022-05-08 20:49 | RAD REPORT ---
EXAM DESCRIPTION: RAD - Chest Single View - 05/08/2022 3:17 am CLINICAL HISTORY: The patient is 41 years old and is Female; PALPITATIONS TECHNIQUE: Frontal view of the chest. COMPARISON: No relevant prior studies available. FINDINGS: LUNGS: Unremarkable. No consolidation. PLEURAL SPACE: Unremarkable. No pleural effusion. No pneumothorax. HEART: Unremarkable. No cardiomegaly. MEDIASTINUM: Unremarkable. BONES/JOINTS: Unremarkable. IMPRESSION: Normal chest x-ray. Electronically signed by: Derrell Wei MD 05/08/2022 3:25 AM HEAD KNITTING MACHINE FIXER Due to temporary technical issues with the PACS/Fluency reporting system, reports are being signed by the in house radiologists without review as a courtesy to insure prompt reporting. The interpreting radiologist is fully responsible for the content of the report.
--- NOTE | 2022-05-10 17:04 | EKG ---
Test Date: 2022-05-08 Test Time: 02:52:42 Creative Developer: NIRANJAN MEASUREMENT RESULTS: Intervals: Rate: 106 NH: 138 QRSD: 88 QT: 342 QTc: 454 [place]: P: 64 NH: 138 QRS: 67 T: 38 INTERPRETIVE STATEMENTS: Sinus tachycardia Possible Left atrial enlargement Borderline ECG Compared to ECG 08/11/2017 15:40:16 Sinus rhythm no longer present Electronically Signed On 05-10-22 16:58:13 GASTROENTEROLOGY MANAGER by Terrence Ram
== END 2022-05-08 04:05 | disposition home or self-care (01) ==
LOC: ER 02:18
DX: O99.411 Diseases of the circulatory system complicating pregnancy, first trimester (principal); R03.0 Elevated blood-pressure reading, without diagnosis of hypertension; R00.2 Palpitations; O99.331 Smoking (tobacco) complicating pregnancy, first trimester; F17.210 Nicotine dependence, cigarettes, uncomplicated; Z3A.01 Less than 8 weeks gestation of pregnancy
CPT/HCPCS: 36415; 71045; 80048; 81003; 81025; 83735; 84484; 85025; 85379; 93005; 99284; J7030